=== PATIENT | female | born 1965 | race African-American/Black ===

== ENCOUNTER 2021-10-04 12:25 | Emergency (ER) | payer OTHER, MEDICAID ==
[~2021-10-04] VITALS: Ht 165.1 cm; Wt 86.2 kg
[2021-10-04 13:24] LABS: Urine Bacteria FEW /hpf (None Seen); Urine Blood Negative /uL (Negative); Urine Mucus FEW (None Seen); Urine Specific Gravity 1.025 (1.001-1.035); Urine WBC 2 /hpf (0 - 5)
[2021-10-04 13:26] LABS: Basophils # (auto) 0 10 ^3/uL (0-0.2); Eosinophils # (auto) 0.6 10 ^3/uL (0-0.8); Eosinophils % (auto) 6.5 % (0.0-7.0); Hematocrit 39.3 % (36.0-46.0); Hemoglobin 12.4 g/dL (12.2-16.2); Lymphocytes # (auto) 2.5 10 ^3/uL (0.4-5.4); Mean Corpuscular Hemoglobin 25.2 pg (28.0-32.0); Mean Corpuscular Hgb Conc. 31.6 g/dL (32.0-36.0); Mean Corpuscular Volume 79.8 fL (80.0-100.0); Monocytes # (auto) 0.4 10 ^3/uL (0-1.3); Monocytes % (auto) 3.7 % (0.0-12.0); Neutrophils # (auto) 6.4 10 ^3/uL (1.6-8.6); Neutrophils % (auto) 64.8 % (37.0-80.0); Nucleated Red Blood Cells % 0.1 %; Red Blood Cells 4.93 10^6/uL (4.0-5.20); Red Cell Distribution Width 15.2 % (11.8-14.3); White Blood Cell 9.8 10^3/uL (4.4-10.8)
[2021-10-04 13:34] LABS: Albumin 3.6 g/dL (3.4-5.0); Calcium 9.5 mg/dL (8.5-10.1); Potassium 4.1 mmol/L (3.5-5.1)
[2021-10-04 13:37] LABS: BUN/Creatinine Ratio 21.1; Bilirubin, Total 0.4 mg/dL (0.2-1.0); Total Protein 7.6 g/dL (6.4-8.2)
[2021-10-04 13:47] LABS: INR 1.02 (0.9-1.15); Partial Thromboplastin Time 28.6 sec (23.6-33.0)
[2021-10-04 14:56] VITALS: BP 136/82
[2021-10-04] MEDS ORDERED: SODIUM CHLORIDE 0.9% 1,000 ML IV ONE (16:00)
[2021-10-04] MEDS ORDERED: PANTOPRAZOLE 40 MG/10 ML VIAL INJ IV ONE (16:00)
[2021-10-04] MEDS ORDERED: PANT40TA2 PO (16:47)
== END 2021-10-04 16:57 | disposition home or self-care (01) ==
LOC: ER 12:25
DX: K62.5 Hemorrhage of anus and rectum (principal); K64.8 Other hemorrhoids; I10 Essential (primary) hypertension; E78.5 Hyperlipidemia, unspecified; Z86.010 Personal history of colon polyps; Z79.899 Other long term (current) drug therapy
CPT/HCPCS: 36415; 71045; 74176; 80053; 81001; 82270; 83605; 83690; 85025; 85610; 85730; 93005; 96361; 96374; 99285; C9113; J7030

== ENCOUNTER 2025-07-05 07:25 | Day surgery (SDC) | payer OTHER, MEDICAID ==
[2025-07-04 09:04] LABS: Hemoglobin 13.1 g/dL (12.2-16.2)
[2025-07-04 09:06] LABS: Hematocrit 40.9 % (36.0-46.0); Mean Corpuscular Hemoglobin 25.8 pg (28.0-32.0); Mean Corpuscular Volume 80.6 fL (80.0-100.0); Nucleated Red Blood Cells % 0.2 %
[2025-07-04 09:09] LABS: Urine Protein, UAD Negative (Negative)
[2025-07-04 09:21] LABS: INR 0.98 (0.9-1.15); Partial Thromboplastin Time 28.0 SEC (24.5-34.5); Prothrombin Time 10.4 sec (9.3-11.8)
[2025-07-04 09:25] LABS: Alanine Aminotransferase 20 U/L (7-40); Alkaline Phosphatase 105 U/L (46-116); Anion Gap 7 (5-15); BUN/Creatinine Ratio 16.7 (10.0-20.0); Blood Urea Nitrogen 13 mg/dL (9-23); Calcium 9.4 mg/dL (8.7-10.4); Carbon Dioxide 27 mmol/L (20-31); Glucose 90 mg/dL (74-106); Potassium 4.8 mmol/L (3.5-5.1); Sodium 142 mmol/L (136-145); Total Protein 7.3 g/dL (5.7-8.2)
[2025-07-04 09:26] LABS: Albumin 4.4 g/dL (3.2-4.8)
[2025-07-04 09:27] LABS: Bilirubin, Total 0.2 mg/dL (0.2-1.0); Chloride 108 mmol/L (98-107)
[~2025-07-05] VITALS: Ht 167.6 cm; Wt 89.8 kg
[~2025-07-05 07:25] MED LIST: HYDR25TA5 GT; LEVE500T40 PO; LISI20TA56 PO; PANT40TA2 PO; ROSU10TA16 PO
[2025-07-05] MEDS ORDERED: LIDOCAINE 2% (LOCAL ANESTH.) PF 5ml SDV ONE (08:03)
[2025-07-05] MEDS ORDERED: PROPOFOL 10 MG/ML 20 ML IV ONE (08:03)
--- NOTE | 2025-07-05 08:34 | DVHHP2 ---
GI H&P Pre-Op Assessment Date: 07/05/25 Chief complaint: Epigastric pain, nausea vomiting HPI: per clinic note Past medical history: per clinic note Past surgical history: per clinic note Family history: per clinic note Physical exam: General: NAD, AAOX3 HEENT: PERRL, no scleral icterus, normal hearing, gums without lesions or bleeding, oropharynx clear without erythema or exudate. Neck: Supple without enlargement of the thyroid, or lymphadenopathy. Chest: Normal size and shape, no tenderness, lung ontiveros clear to auscultation and percussion, nonlabored breathing. Heart: RRR, no murmur Abdomen: non-distended, no tenderness to palpation, +BS, no hepatosplenomegaly Extremities: no edema Neurological: CN II-XII intact, sensation intact in all extremities, 5+ strength in all extremities Skin: No rashes, No jaundice Assessment: - Epigastric pain, nausea vomiting Plan: - EGD - Risks (bleeding, infection, perforation, reaction to sedation medications and cardiopulmonary arrest) and benefit of the procedure were explained to patient. Patient agrees to undergo the procedure. MERA SHUKLA MD Jul 05, 2025 08:34
--- NOTE | 2025-07-05 08:36 | DVHOP2 ---
Operative Report DATE OF OPERATION: 07/05/25 PROCEDURE: Upper Endoscopy. PREOPERATIVE INDICATION: The patient is a 59 -year-old female undergoing endoscopy for epigastric pain, nausea and vomiting. POSTOPERATIVE DIAGNOSES: 1. Antral gastritis 2. 1 cm hiatal hernia PROCEDURE PERFORMED BY: Jefe Jose SCOPE: Olympus videoendoscope. ASA CLASS: 3 PREOPERATIVE MEDICATIONS: MAC with Colin COLON PROCEDURE IN DETAIL: After obtaining an informed consent, the patient was placed on her back. The patient was then sedated with the above medications. A bite block was placed between her teeth. The endoscope was then passed through the oropharynx, into the esophagus, and through the stomach and pylorus up to the second and third part of the duodenum. The duodenum was normal in appearance. There was antral gastritis. Antral biopsies were obtained using cold forceps. There was a 1 cm hiatal hernia. The GE junction was normal in appearance at 34 cm. The esophagus was normal in appearance. The endoscope was then withdrawn. The patient tolerated the procedure well without difficulty. COMPLICATIONS : None SPECIMENS: Antral biopsies DISPOSITION: D/C to home PLAN: 1. Await for biopsy result 2. Continue with Protonix. JEFE JOSE MD Jul 05, 2025 08:36
--- NOTE | 2025-07-05 08:36 | DVHDS2 ---
Physician Discharge Progress N Final Diagnosis: Antral gastritis Operations or Procedures: Operations or Procedures EGD with cold biopsies Condition on Discharge: Good Disposition: Home Discharge Instructions: Diet: Regular Activity: No Restrictions, As Tolerated Medications: Resume with previous home medications Follow Up Care: Discharge Statement: "Patient was advised to return to the ER or call 911 if any headaches, dizziness, shortness of breath, chest pain, abdominal pain, bleeding, fevers, or worsening of medical condition. Patient was counseled about treatment plan, medications, possible side effects, patientverbalized understanding. All questions were answered to the best of my ability. This discharge took greater then 30 minutes in planning, reviewing documen tation, counseling the patient, and discussing with other team members." MERA SHUKLA MD Jul 05, 2025 08:36
[2025-07-05 08:38] VITALS: TEMP 97.8
[2025-07-05 09:00] VITALS: BP 128/87; PULSE 59; RESP 22; O2SAT 97
== END 2025-07-05 09:10 | disposition home or self-care (01) ==
LOC: GI 07:25
PROVIDERS: ATTEND Internal Medicine Gastroenterology
DX: K29.50 Unspecified chronic gastritis without bleeding (principal); R10.13 Epigastric pain; K44.9 Diaphragmatic hernia without obstruction or gangrene; E66.9 Obesity, unspecified; J45.909 Unspecified asthma, uncomplicated; I10 Essential (primary) hypertension; E78.5 Hyperlipidemia, unspecified; I69.354 Hemiplegia and hemiparesis following cerebral infarction affecting left non-dominant side; R11.2 Nausea with vomiting, unspecified; Z68.32 Body mass index [BMI] 32.0-32.9, adult; Z79.899 Other long term (current) drug therapy; Z98.890 Other specified postprocedural states
CPT/HCPCS: 36415; 43239; 80053; 81001; 85025; 85610; 85730; 88305; 88313; 88342; J2003; J2704; J7030

== ENCOUNTER 2025-08-21 02:14 | Inpatient (IN) | payer MEDICARE, MEDICAID ==
[~2025-08-21] VITALS: Ht 167.6 cm; Wt 93.5 kg
[2025-08-21] MEDS: SODIUM CHLORIDE 0.9% 1,000 ML IV ONE (02:30)
[2025-08-21] MEDS ORDERED: MORPHINE SULFATE INJ 2 MG/ml SYRG IV ONE (02:30)
[2025-08-21] MEDS: ACETAMINOPHEN 500 MG TAB or CAP PO ONE (02:30)
--- NOTE | 2025-08-21 02:37 | ED.PDOC ---
HPI (NEURO) HPI Comments 59 year-old female presents to the ED via EMS with a chief complaint of R sided headache, neck pain, R upper extremity pain, and general weakness as of 0500 yesterday. Patient also presents with R sided facial droop, but no slurred speech or blurred vision. Patient has a Hx of CVA, with L sided weakness following last stroke. Patient reports taking Tylenol yesterday for pain. Patient is also taking Keppra and [place] medications as prescribed. There are otherwise no further complaints or modifying factors at this time. REVIEW OF SYSTEMS: General: No fever, no chills, or fatigue HEENT: No sore throat, no earache, no congestion, + neck pain. Cardiac: No chest pain. No palpitations. Lungs: No shortness of breath, no cough. GI: No nausea, no vomiting, no diarrhea, no constipation, no abdominal pain : No dysuria, frequency, or urgency. No hematuria. Musculoskeletal: + joint pain , no joint swelling, no extremity edema. Skin: No rash, no itching. Neuro: + headache, no dizziness, + weakness. + R facial droop (And as sated in HPI) PHYSICAL EXAM: General: Awake, alert and oriented. No acute distress. Skin: Skin in warm, dry and intact. Appropriate color for ethnicity. HEENT: The head is normocephalic and atraumatic. Conjunctivae are clear without exudates or hemorrhage. Sclera is non-icteric. Eyelids are normal in appearance without swelling or lesions. Oral mucosa is pink and moist Neck: The neck is supple with normal range of motion. No JVD. Cardiac: Heart rate and rhythm are normal. No murmurs, gallops, or rubs are auscultated. Respiratory: No signs of respiratory distress. Lung sounds are clear in all lobes bilaterally without rales, rhonchi, or wheezes. Abdominal: Abdomen is soft, non-tender without distention, guarding or rigidity. Bowel sounds are present and normoactive in all four quadrants. Extremities: +Pain in the R upper extremity, shoulder, and neck area. + bilateral lower extremity weakness. Lower extremities without edema. Neurological: The patient is awake, alert and oriented to person, place, and time with normal speech. Speech is clear. + R facial droop. Psychiatric: Appropriate mood and affect. Good judgement and insight. Chief Complaint: Right Sided Weakness Time Seen by MD: 02:31 Primary Care Provider: SHANT Lam Notes: Medications, Allergies Information Source: Patient Mode of Arrival: Wheelchair Severity: Moderate Timing: Days Duration: Since onset Associated Signs and Symptoms: Headache, Neck Pain, Weakness Past Medical History PAST MEDICAL HISTORY: CVA, High Lipids, HTN, Kidney Stones, Seizures Surgical History: Denies all surgeries LANDCARE OFFICER History: No Pertinent LANDCARE OFFICER History Family History Family History: Reviewed,noncontributory to illness Social History Smoker: Non-Smoker Alcohol: Denies ETOH Use Drugs: Denies Drug Use Lives In: Home EKG EKG : Pulse Rate (adult): 55 Cardiac Rhythm: NSR Hypertrophy: LAE Was a procedure done? Was a procedure done?: No Differential Diagnosis (SZ) CVA: CVA, Electrolyte Imbalance, Encephalopathy, Hypoglycemia Headache: Cluster, Migraine, Sinusitis X-Ray, Labs, Meds, VS Vital Signs Date Time Temp Pulse Resp B/P (MAP) Pulse Ox O2 Delivery O2 Flow Rate FiO2 08/21/25 05:10 70 16 137/80 08/21/25 02:37 55 08/21/25 02:32 55 08/21/25 02:16 98.0 62 14 144/99 100 98.0 Lab Test 08/21/25 02:45 Range/Units White Blood Count 11.3 H 4.4-10.8 10^3/uL Red Blood Count 5.10 4.0-5.20 10^6/uL Hemoglobin 12.8 12.2-16.2 g/dL Hematocrit 40.1 36.0-46.0 % Mean Corpuscular Volume 78.6 L 80.0-100.0 fL Mean Corpuscular Hemoglobin 25.1 L 28.0-32.0 pg Mean Corpuscular Hemoglobin Concent 32.0 32.0-36.0 g/dL Red Cell Distribution Width 15.3 H 11.8-14.3 % Platelet Count 235 140-450 10^3/uL Mean Platelet Volume 10.3 6.9-10.8 fL Neutrophils (%) (Auto) 53.5 37.0-80.0 % Lymphocytes (%) (Auto) 33.7 10.0-50.0 % Monocytes (%) (Auto) 8.6 0.0-12.0 % Eosinophils (%) (Auto) 2.6 0.0-7.0 % Basophils (%) (Auto) 1.6 0.0-2.0 % Neutrophils # (Auto) 6.0 1.6-8.6 10 ^3/uL Lymphocytes # (Auto) 3.8 0.4-5.4 10 ^3/uL Monocytes # (Auto) 1.0 0-1.3 10 ^3/uL Eosinophils # (Auto) 0.3 0-0.8 10 ^3/uL Basophils # (Auto) 0.2 0-0.2 10 ^3/uL Nucleated Red Blood Cells 0.2 % Prothrombin Time 10.3 9.3-11.8 sec Prothrombin Time INR 0.97 0.9-1.15 Activated Partial Thromboplast Time 21.4 L 24.5-34.5 SEC Sodium Level 138 136-145 mmol/L Potassium Level 4.4 3.5-5.1 mmol/L Chloride Level 109 H 98-107 mmol/L Carbon Dioxide Level 22 20-31 mmol/L Anion Gap 7 5-15 Blood Urea Nitrogen 7 L 9-23 mg/dL Creatinine 0.74 0.550-1.02 mg/dL Glomerular Filtration Rate Calc 94 >90 mL/min BUN/Creatinine Ratio 9.5 L 10.0-20.0 Serum Glucose 98 74-106 mg/dL Calcium Level 9.3 8.7-10.4 mg/dL Magnesium Level 2.1 1.6-2.6 mg/dL Total Bilirubin 0.3 0.2-1.0 mg/dL Aspartate Amino Transferase (AST) 29 13-40 U/L Alanine Aminotransferase (ALT) 24 7-40 U/L Alkaline Phosphatase 85 46-116 U/L Troponin I High Sensitivity 5 </=34 ng/L B-Type Natriuretic Peptide 20.27 0-100 pg/mL Total Protein 7.1 5.7-8.2 g/dL Albumin 4.1 3.2-4.8 g/dL Current Medications Medications (Trade) Dose Ordered Sig/Svetlana Route Start Time Stop Time Status Last Admin Acetaminophen (Tylenol Tablet Or Capsule) 1,000 mg ONCE ONCE PO 08/21/25 02:30 08/21/25 02:32 DC 08/21/25 02:30 Sodium Chloride 1,000 ml @ 1,000 mls/hr Q1H ONCE IV 08/21/25 02:30 08/21/25 03:29 DC 08/21/25 02:30 Hydromorphone HCl (Dilaudid Injection) 0.5 mg ONCE ONCE IV 08/21/25 04:15 08/21/25 04:16 DC 08/21/25 05:10 Ketorolac Tromethamine (Toradol Injection) 15 mg ONCE ONCE IV 08/21/25 04:15 08/21/25 04:16 DC 08/21/25 04:26 Time of 1ST Reevaluation: 03:24 Reevaluation 1ST: Unchanged Patient Education/Counseling: Diagnosis, Treatment Family Education/Counseling: Diagnosis, Treatment Departure 1 Departure Time of Disposition: 05:34 Impression: Primary Impression: Neck pain on right side Additional Impressions: Stroke-like symptoms Severe headache Disposition: ADMITTED INPATIENT Condition: Stable Critical Care Note Critical Care Time?: No Stability Stability form required: No Heart Score Heart Score: Heart Score Response (Comments) Value History Slightly Suspicious 0 EKG Normal 0 Age 45-64 1 Risk Factors 1 or 2 risk factors 1 Troponin N/A 0 Total 2 I personally scribed for RAYO PRATT MD ([email or web address]) on 08/21/25 at 02:37. Electronically submitted by Kimmy Martinez ([email or web address]). I personally scribed for RAYO PRATT MD ([email or web address]) on 08/21/25 at 02:38. Electronically submitted by Kimmy Martinez ([email or web address]). I personally scribed for RAYO PRATT MD ([email or web address]) on 08/21/25 at 03:08. Electronically submitted by Kimmy Martinez ([email or web address]). RAYO PRATT MD Aug 21, 2025 02:37
[2025-08-21] MEDS: IOHEXOL 350 MG/ML 100ML IJ ONE (02:40)
[2025-08-21 03:13] LABS: Hemoglobin 12.8 g/dL (12.2-16.2); Mean Corpuscular Hemoglobin 25.1 pg (28.0-32.0); Nucleated Red Blood Cells % 0.2 %
[2025-08-21 03:15] LABS: Hematocrit 40.1 % (36.0-46.0); Mean Corpuscular Volume 78.6 fL (80.0-100.0)
[2025-08-21 03:30] LABS: Alanine Aminotransferase 24 U/L (7-40); Albumin 4.1 g/dL (3.2-4.8); Alkaline Phosphatase 85 U/L (46-116); Anion Gap 7 (5-15); BUN/Creatinine Ratio 9.5 (10.0-20.0); Calcium 9.3 mg/dL (8.7-10.4); Carbon Dioxide 22 mmol/L (20-31); Glucose 98 mg/dL (74-106); Magnesium 2.1 mg/dL (1.6-2.6); Potassium 4.4 mmol/L (3.5-5.1); Sodium 138 mmol/L (136-145); Total Protein 7.1 g/dL (5.7-8.2)
[2025-08-21 03:31] LABS: Bilirubin, Total 0.3 mg/dL (0.2-1.0)
[2025-08-21 03:38] LABS: Blood Urea Nitrogen 7 mg/dL (9-23); Chloride 109 mmol/L (98-107)
[2025-08-21 03:43] LABS: INR 0.97 (0.9-1.15); Partial Thromboplastin Time 21.4 SEC (24.5-34.5); Prothrombin Time 10.3 sec (9.3-11.8)
--- NOTE | 2025-08-21 04:17 | DVH ---
CHEST RADIOGRAPH INDICATION: Stroke-like symptoms TECHNIQUE: Single frontal view of the chest was obtained COMPARISON: XY CHEST TWO VIEWS ROUTINE on DOS: 10/04/2021 FINDINGS: Lines and Tubes: None Lungs: No focal consolidation. Pleura: No effusion. No pneumothorax. Cardiomediastinal contours: Unremarkable Bones: No acute osseous abnormality. IMPRESSION: 1. No acute cardiopulmonary disease.
[2025-08-21] MEDS: KETOROLAC TROMETH 30 MG/ML 1ML VIAL IV ONE (04:26)
[2025-08-21] MEDS: HYDROmorphone HCL 2 MG/ML VL/or syr IV ONE (05:10)
--- NOTE | 2025-08-21 05:43 | DVH ---
PROCEDURE: CT ANGIO HEAD/Neck HISTORY: Severe right-sided headache, right facial droop, Comparison Study: None Exam Date:08/21/2025 03:16 AM TECHNIQUE: Noncontrast CT scan of the head was performed using 2.5 mm axial images. Coronal sagittal reformatted images are provided. CT angiography of the head and neck was performed with 100 cc Omnipaque 350 intravenous contrast. Coronal sagittal reformatted images were submitted. 3D image postprocessing was performed and images were used for interpretation and reporting. Radiation Dose : CT Dose: CTDI volume is 61.69 mGy. Dose-length product is 2.42 mGy*cm FINDINGS: CT scan of the head: No acute intracranial hemorrhage, mass effect or midline shift. No hydrocephalus. There is preservation of ovalle-white matter differentiation. Basal cisterns are patent. No sulcal effacement. Mastoid air cells and paranasal sinuses are patent. No acute calvarial abnormality. CTA head: The bilateral distal internal carotid arteries, middle and anterior cerebral arteries are patent. Posterior cerebral arteries are patent. The basilar artery is patent. No evidence of aneurysm or arteriovenous malformation. CTA neck: The visualized thoracic aortic arch and proximal great vessels are unremarkable. The left common, internal and external carotid arteries are within normal limits. The right common, internal and external carotid arteries are within normal limits. The cervical segments of the right and left vertebral arteries are within normal limits. The limited visualized lung apices are clear. The surrounding soft tissues and osseous structures are otherwise unremarkable. IMPRESSION: 1. No evidence of acute intracranial hemorrhage, mass effect or midline shift. 2. No evidence of hemodynamically significant intracranial stenosis, proximal occlusion or aneurysm. 3. No evidence of hemodynamically significant cervical stenosis or dissection. All CT scans at this medical facility are performed using dose modulation techniques as appropriate to a performed exam including the following: Automated exposure control was utilized; adjustment of the MA and/or KV according to patient size; and use of iterative reconstruction technique.
--- NOTE | 2025-08-21 06:03 | ECG ---
[facility] Test Date: 2025-08-21 Test Time: 02:32:20 Pat Name: JONNY BENITEZ Department: ED Room: 0222 Gender: F Marionette Performer: NAHED : 1965 Requested By: RAYO PRATT Order Number: [id number] Reading MD: Bobby Sanz Measurements Intervals [place] Rate: 55 P: 27 OK: 125 QRS: 48 QRSD: 100 T: 21 QT: 428 QTc: 410 Interpretive Statements Sinus rhythm Probable left atrial enlargement Borderline T abnormalities, anterior leads Electronically Signed On 08-24-2025 10:29:28 PST by Bobby Sanz Please click the below link to view image of tracing.
[2025-08-21] MEDS: IBUPROFEN 800 MG TAB PO ONE (08:18)
[2025-08-21] MEDS: BACLOFEN 10 MG TAB PO ONE (08:18)
[2025-08-21] MEDS ORDERED: ROSU40TA47 PO (08:24)
[2025-08-21] MEDS ORDERED: LEVE750T3 PO (08:24)
[2025-08-21] MEDS ORDERED: LISI10TA34 PO (08:24)
[2025-08-21] MEDS ORDERED: HYDR-4072 PO (08:24)
[2025-08-21] MEDS ORDERED: DOCUSATE SOD 100 MG CAP PO PRN (08:30)
[2025-08-21] MEDS ORDERED: ONDANSETRON HCL 4 MG/2 ML VIAL IV PRN (08:30)
[2025-08-21] MEDS ORDERED: ACETAMINOPHEN 325 MG TAB PO PRN (08:30)
--- NOTE | 2025-08-21 09:06 | DVHHP2 ---
History of Present Illness Reason for Visit: Right sided neck pain History of Present Illness Tanya Lantigua is a 59-year-old female with past medical history of CVA with left sided weakness, hypertension, hyperlipidemia, and seizures who came to the hospital due to right sided, head, neck, and shoulder pain. Patient states her pain began yesterday, 08/20/2025, about 0500. She tried taking Tylenol and using hot packs to relieve the pain. The pain continued to worsen throughout the day. This morning the pain became unbearable, she was not able to sleep. So she woke up her about 0300 and had him bring her to the hospital. CTA of head and neck was competed by ER and negative. Cardiovascular: HTN, hyperipidemia [employer]AIC FLOOR LAYER: Other (CVA with left sided weakness, seizures) Past Surgical History: (x 5) Smoke: No ALCOHOL: none Drugs: Marijuana Lives: with Family Domestic Violence: Neg Review of Systems Constitutional: No: Fever, Chills, Sweats, Weakness, Malaise, Other Eyes: No: Pain, Vision change, Conjunctivae inflammation, Eyelid inflammation, Other, Redness ENT: No: Ear pain, Ear discharge, Nose pain, Nose discharge, Nose congestion, Mouth pain, Mouth swelling, Throat pain, Throat swelling, Other Respiratory: No: Cough, Dry, Shortness of breath, SOB with excertion, Wheezing, Hemoptysis, Pleuritic Pain, Sputum, Wheezing, Other Cardiovascular: No: Chest Pain, Palpitations, Orthopnea, Paroxysmal Noc. Dyspnea, Edema, Lt Headedness, Other Gastrointestinal: No: Nausea, Vomiting, Abdominal Pain, Diarrhea, Constipation, Melena, Hematochezia, Other Genitourinary: No Dysuria, No Frequency, No Incontinence, No Hematuria, No Rete ntion, No Other Musculoskeletal: other (right sided headache), neck pain (right, painful to move head), shoulder pain (right), arm pain (right); No: back pain, hand pain, leg pain, foot pain Skin: No: Rash, Lesions, Jaundice, Bruising, Other Neurological: No: Weakness, Numbness, Incoordination, Change in speech, Confusion, Seizures, Other Allergies: Coded Allergies: NO KNOWN ALLERGIES (Unverified , 07/04/25) Medications Current Medications Medications Dose Ordered Sig/Svetlana Route Start Time Stop Time Status Last Admin Dose Admin Ondansetron HCl 4 mg Q4HP PRN IV 08/21/25 08:30 UNV Docusate Sodium 100 mg BIDPRN PRN PO 08/21/25 08:30 UNV Acetaminophen 650 mg Q6HP PRN PO 08/21/25 08:30 UNV Exam Vital Signs Vital Signs Date Time Temp Pulse Resp B/P (MAP) Pulse Ox O2 Delivery O2 Flow Rate FiO2 08/21/25 08:18 98.5 08/21/25 08:11 65 16 145/75 (98) 100 General Appearance: Alert, Oriented X3, Cooperative, moderate distress HEENT: Atraumatic, PERRLA, Mucous membr. moist/pink Respiratory: Clear to auscultation, Normal air movement Cardiovascular: Normal S1, Normal S2, No murmurs, Other (SB-SR) Abdominal: Normal bowel sounds, Soft, No tenderness, No hepatospenomegaly Extremities: No clubbing, No cyanosis, No edema, Normal pulses, No tenderness/swelling Skin: No rashes, No breakdown, No significant lesion Neuro: Normal gait, Normal speech, Strength at 5/5 X4 ext Psych/Mental Status: Mental status NL, Mood NL Labs/Xrays Labs Test 08/21/25 02:45 Range/Units White Blood Count 11.3 H 4.4-10.8 10^3/uL Red Blood Count 5.10 4.0-5.20 10^6/uL Hemoglobin 12.8 12.2-16.2 g/dL Hematocrit 40.1 36.0-46.0 % Mean Corpuscular Volume 78.6 L 80.0-100.0 fL Mean Corpuscular Hemoglobin 25.1 L 28.0-32.0 pg Mean Corpuscular Hemoglobin Concent 32.0 32.0-36.0 g/dL Red Cell Distribution Width 15.3 H 11.8-14.3 % Platelet Count 235 140-450 10^3/uL Mean Platelet Volume 10.3 6.9-10.8 fL Neutrophils (%) (Auto) 53.5 37.0-80.0 % Lymphocytes (%) (Auto) 33.7 10.0-50.0 % Monocytes (%) (Auto) 8.6 0.0-12.0 % Eosinophils (%) (Auto) 2.6 0.0-7.0 % Basophils (%) (Auto) 1.6 0.0-2.0 % Neutrophils # (Auto) 6.0 1.6-8.6 10 ^3/uL Lymphocytes # (Auto) 3.8 0.4-5.4 10 ^3/uL Monocytes # (Auto) 1.0 0-1.3 10 ^3/uL Eosinophils # (Auto) 0.3 0-0.8 10 ^3/uL Basophils # (Auto) 0.2 0-0.2 10 ^3/uL Nucleated Red Blood Cells 0.2 % Prothrombin Time 10.3 9.3-11.8 sec Prothrombin Time INR 0.97 0.9-1.15 Activated Partial Thromboplast Time 21.4 L 24.5-34.5 SEC Sodium Level 138 136-145 mmol/L Potassium Level 4.4 3.5-5.1 mmol/L Chloride Level 109 H 98-107 mmol/L Carbon Dioxide Level 22 20-31 mmol/L Anion Gap 7 5-15 Blood Urea Nitrogen 7 L 9-23 mg/dL Creatinine 0.74 0.550-1.02 mg/dL Glomerular Filtration Rate Calc 94 >90 mL/min BUN/Creatinine Ratio 9.5 L 10.0-20.0 Serum Glucose 98 74-106 mg/dL Calcium Level 9.3 8.7-10.4 mg/dL Magnesium Level 2.1 1.6-2.6 mg/dL Total Bilirubin 0.3 0.2-1.0 mg/dL Aspartate Amino Transferase (AST) 29 13-40 U/L Alanine Aminotransferase (ALT) 24 7-40 U/L Alkaline Phosphatase 85 46-116 U/L Troponin I High Sensitivity 5 </=34 ng/L B-Type Natriuretic Peptide 20.27 0-100 pg/mL Total Protein 7.1 5.7-8.2 g/dL Albumin 4.1 3.2-4.8 g/dL CHEST RADIOGRAPH FINDINGS: Lines and Tubes: None Lungs: No focal consolidation. Pleura: No effusion. No pneumothorax. Cardiomediastinal contours: Unremarkable Bones: No acute osseous abnormality. IMPRESSION: 1. No acute cardiopulmonary disease. PROCEDURE: CT ANGIO HEAD/Neck FINDINGS: CT scan of the head: No acute intracranial hemorrhage, mass effect or midline shift. No h ydrocephalus. There is preservation of ovalle-white matter differentiation. Basal cisterns are patent. No sulcal effacement. Mastoid air cells and paranasal sinuses are patent. No acute calvarial abnormality. CTA head: The bilateral distal internal carotid arteries, middle and anterior cerebral arteries are patent. Posterior cerebral arteries are patent. The basilar artery is patent. No evidence of aneurysm or arteriovenous malformation. CTA neck: The visualized thoracic aortic arch and proximal great vessels are unremarkable. The left common, internal and external carotid arteries are within normal limits. The right common, internal and external carotid arteries are within normal limits. The cervical segments of the right and left vertebral arteries are within normal limits. The limited visualized lung apices are clear. The surrounding soft tissues and osseous structures are otherwise unremarkable. IMPRESSION: 1. No evidence of acute intracranial hemorrhage, mass effect or midline shift. 2. No evidence of hemodynamically significant intracranial stenosis, proximal occlusion or aneurysm. 3. No evidence of hemodynamically significant cervical stenosis or dissection. SEPSIS Sepsis Screen Date sepsis recognized/suspect: Aug 21, 2025 Time Sepsis recognized/suspect: 218 Recent Procedure: Yes (EGD) On Antibiotic Therapy: No Respiratory Rate >20: No Heart Rate >90: No Temp<36 C (96.8 F) or >38.3 C: No SBP <90 or MAP <65 mmHG: No New Acute Mental Status Change: No Is the patient on CPAP, BIPAP,: No Physician Orders Stroke Assessment (08/21/25 02:29) Vital Signs .PER UNIT PROTOCOL (08/21/25 02:29) Director Personal (08/21/25 02:29) Accurate Weight In Kg (08/21/25 02:29) Accucheck (08/21/25 02:29) Chest Xray 1 View (08/21/25 02:29) 2 Large Bore Ivs (20mg Or Larg (08/21/25 02:29) Nursing Dysphagia Screen (08/21/25 02:29) Neuro Checks Per Unit Protocol (08/21/25 02:29) Angio Head/Neck (08/21/25 02:29) Admit (08/21/25 08:16) Code Status (08/21/25 08:16) 2 Gm Sodium Diet (08/21/25 Breakfast) Ondansetron Hcl (Zofran) (08/21/25 08:30) Docusate Sodium Capsule (Colace Capsule) (08/21/25 08:30) Complete Blood Count (08/22/25 04:00) Comprehensive Metabolic Panel (08/22/25 04:00) Condition: Serious (08/21/25 08:16) Acetaminophen Tablet (Tylenol Tablet) (08/21/25 08:30) Hot Pack (08/21/25 ) Hydrocodone-Acet 10/325mg Tab ([place] 10/ (08/21/25 08:30) (Nf) Levetiracetam (08/21/25 10:00) (Nf) Lisinopril (08/21/25 10:00) (Nf) Rosuvastatin Calcium (08/21/25 22:00) Vital Signs Date Time Temp Pulse Resp B/P (MAP) Pulse Ox O2 Delivery O2 Flow Rate FiO2 08/21/25 08:18 98.5 08/21/25 08:11 98.5 65 16 145/75 (98) 100 98.5 08/21/25 05:41 98.8 70 16 141/100 (114) 99 98.8 08/21/25 05:10 70 16 137/80 08/21/25 02:37 55 08/21/25 02:32 55 08/21/25 02:16 98.0 62 14 144/99 100 98.0 Laboratory Tests Test 08/21/25 02:45 White Blood Count 11.3 10^3/uL (4.4-10.8) H Medications Medications Dose Ordered Sig/Svetlana Route Start Time Stop Time Status Last Admin Dose Admin Acetaminophen 1,000 mg ONCE ONCE PO 08/21/25 02:30 08/21/25 02:32 DC 08/21/25 02:30 1,000 MG Baclofen 10 mg ONCE ONCE PO 08/21/25 08:00 08/21/25 08:07 DC 08/21/25 08:18 10 MG Hydromorphone HCl 0.5 mg ONCE ONCE IV 08/21/25 04:15 08/21/25 04:16 DC 08/21/25 05:10 0.5 MG Ibuprofen 800 mg ONCE ONCE PO 08/21/25 08:00 08/21/25 08:07 DC 08/21/25 08:18 800 MG Ketorolac Tromethamine 15 mg ONCE ONCE IV 08/21/25 04:15 08/21/25 04:16 DC 08/21/25 04:26 15 MG Sodium Chloride 1,000 ml @ 1,000 mls/hr Q1H ONCE IV 08/21/25 02:30 08/21/25 03:29 DC 08/21/25 02:30 1,000 MLS/HR Assessment/Plan Assessment/Plan Assessment: Neck pain on right side, CVA, Hypertension, Hyperlipidemia, Seizures, Plan: Admit to Med-Surg, Pain management, Muscle relaxers, Hot packs, Motrin, Home medications reconciled, Plan discussed with: Patient My Orders Orders - RICKI ESPOSITO Procedure Category Date Status Time Admit ADMIT 08/21/25 Transmitted 08:16 Code Status CODE 08/21/25 Transmitted 08:16 2 Gm Sodium Diet DIET 08/21/25 Transmitted Breakfast Ondansetron Hcl PHA 08/21/25 Logged (Zofran) 08:30 Docusate Sodium PHA 08/21/25 Logged Capsule (Colace 08:30 Complete Blood Count LAB 08/22/25 Verified 04:00 Comprehensive LAB 08/22/25 Verified Metabolic Panel 04:00 Condition: Serious TAMIKA 08/21/25 In Process 08:16 Acetaminophen Tablet PHA 08/21/25 Logged (Tylenol Tablet) 08:30 Hot Pack ED NURSING 08/21/25 Transmitted Hydrocodone-Acet PHA 08/21/25 Verified 10/325mg Tab ([place] 08:30 (Nf) Levetiracetam PHA 08/21/25 Verified 10:00 (Nf) Lisinopril PHA 08/21/25 Verified 10:00 (Nf) Rosuvastatin PHA 08/21/25 Verified Calcium 22:00 Date of Service: Aug 21, 2025 Billing Provider: RICKI ESPOSITO Common Visit Codes: [id number] INP/OBS CARE (MOD) RICKI ESPOSITO Aug 21, 2025 09:06
[2025-08-21] MEDS: levETIRAcetam 500 MG TAB PO SCH ×3 (10:00→21:58)
[2025-08-21] MEDS: LISINOPRIL 20 MG TAB PO SCH (10:31)
[2025-08-21 11:10] VITALS: RESP 16; O2SAT 99
[2025-08-21] MEDS: HYDROcodone-ACET 10/325MG TAB PO PRN (13:46)
--- NOTE | 2025-08-21 13:48 | DVH ---
CLINICAL HISTORY: weakness TECHNIQUE: Routine multiplanar imaging of the brain was performed without gadolinium contrast. COMPARISON: CT ANGIO HEAD/NECK on DOS: 08/21/25, MRI BRAIN WO on DOS: 12/07/24 FINDINGS: There is no abnormal restricted diffusion to suggest acute infarction. There are no significant chronic small vessel ischemic foci. There is no evidence for acute ischemic changes, mass, mass effect, or extra- axial fluid collection. There is no hydrocephalus or midline shift. The cerebral sulci and subarachnoid cisterns are not effaced. The imaged paranasal sinuses are clear. The globes are intact. The midline structures, including the corpus callosum, are unremarkable. The intracranial flow voids are maintained. IMPRESSION: No significant MRI abnormality of the brain.
--- NOTE | 2025-08-21 14:02 | DVHPN2 ---
Reviewed: H&P Changes from previous H/P or p: No Changes General: Per HPI Eyes: No Pain, No Vision change, No Conjunctivae inflammation, No Eyelid inflammation, No Other, No Redness ENT: No Ear pain, No Ear discharge, No Nose pain, No Nose discharge, No Nose congestion, No Mouth pain, No Mouth swelling, No Throat pain, No Throat swelling, No Other Cardiovascular: No Chest Pain, No Palpitations, No Orthopnea, No Paroxysmal Noc. Dyspnea, No Edema, No Lt Headedness, No Other Respiratory: No Cough, No Dry, No Shortness of breath, No SOB with excertion, No Wheezing, No Hemoptysis, No Pleuritic Pain, No Sputum, No Other Gastrointestinal: No Nausea, No Vomiting, No Abdominal Pain, No Diarrhea, No Constipation, No Melena, No Hematochezia, No Other Genitourinary: No Dysuria, No Frequency, No Incontinence, No Hematuria, No Retention, No Other Musculoskeletal: other (right sided headache), neck pain (right, painful to move head), shoulder pain (right), arm pain (right); No back pain, No hand pain, No leg pain, No foot pain Skin: No Rash, No Lesions, No Jaundice, No Bruising, No Other Objective Vitals Vital Signs Date Time Temp Pulse Resp B/P (MAP) Pulse Ox O2 Delivery O2 Flow Rate FiO2 08/21/25 11:35 98.5 59 16 138/83 (101) 100 98.5 08/21/25 11:10 Room Air* 0 21 Exam GEN: Healthy appearing, well-developed, NAD. HEENT: NC/AT; MMM. CV: RRR, no m/r/g. LUNGS: CTAB, no w/r/c. ABD: Soft, NT/ND, NBS, no masses or organomegaly. EXT: skin Warm, well perfused. no rashes. No clubbing, cyanosis, or edema. NEURO: Ambulating with no limitations. No focal deficits. Medications Current Medications Medications Dose Ordered Sig/Svetlana Route Start Time Stop Time Status Last Admin Dose Admin Ondansetron HCl 4 mg Q4HP PRN IV 08/21/25 08:30 Docusate Sodium 100 mg BIDPRN PRN PO 08/21/25 08:30 Acetaminophen 650 mg Q6HP PRN PO 08/21/25 08:30 Acetaminophen/ Hydrocodone Bitart 1 tab TIDP PRN PO 08/21/25 08:30 08/21/25 13:46 1 TAB Levetiracetam 1,500 mg BID PO 08/21/25 10:00 Lisinopril 10 mg DAILY PO 08/21/25 10:00 08/21/25 10:31 10 MG Patient Own Medication 1 tab HS PO 08/21/25 22:00 UNV Atorvastatin Calcium 80 mg HS PO 08/21/25 22:00 Levetiracetam 1,000 mg BID PO 08/21/25 22:00 08/21/25 10:30 1,000 MG Laboratory Results Laboratory Tests 08/21/25 02:45 Chemistry Test 08/21/25 02:45 Albumin 4.1 g/dL (3.2-4.8) Calcium Level 9.3 mg/dL (8.7-10.4) Magnesium Level 2.1 mg/dL (1.6-2.6) Total Protein 7.1 g/dL (5.7-8.2) Coagulation Test 08/21/25 02:45 Prothrombin Time 10.3 sec (9.3-11.8) Prothrombin Time INR 0.97 (0.9-1.15) Activated Partial Thromboplast Time 21.4 SEC (24.5-34.5) L Cardiac Markers Test 08/21/25 02:45 B-Type Natriuretic Peptide 20.27 pg/mL (0-100) LFT Test 08/21/25 02:45 Alanine Aminotransferase (ALT) 24 U/L (7-40) Alkaline Phosphatase 85 U/L (46-116) Aspartate Amino Transferase (AST) 29 U/L (13-40) Total Bilirubin 0.3 mg/dL (0.2-1.0) Labs and/or images reviewed: Labs reviewed by me, Image(s) reviewed by me Assessment/Plan Assessment/Plan Tanya Lantigua is a 59-year-old female with past medical history of CVA with left sided weakness, hypertension, hyperlipidemia, and seizures who came to the hospital due to right sided, head, neck, and shoulder pain. Patient states her pain began yesterday, 08/20/2025, about 0500. She tried taking Tylenol and using hot packs to relieve the pain. The pain continued to worsen throughout the day. This morning the pain became unbearable, she was not able to sleep. So she woke up her about 0300 and had him bring her to the hospital. CTA of head and neck was competed by ER and negative. diagnosis: status migrainus, ruled out stroke cervical neck musckuloskeletal spasm possible Neck pain on right side, Hypertension, Hyperlipidemia, Seizures, plan: We will try migraine cocktail fluid, Mag sulfate, Compazine, Solu-Medrol 20 Also try muscle relaxants -continue home meds Q.4 neuro checks Med surge Full code Plan discussed with: Patient My Orders Orders - SAWYER NEWSOME MD Procedure Category Date Status Time Sodium Chloride 0.9% PHA 08/21/25 Logged 14:00 Methylprednisolone PHA 08/21/25 Logged Sod Succ (Solu Medrol 14:00 Magnesium Sulfate PHA 08/21/25 Logged 1gm/100ml 14:00 Prochlorperazine Inj PHA 08/21/25 Logged (Compazine Inj) 14:00 Date of Service: Aug 21, 2025 Billing Provider: SAWYER NEWSOME MD Common Visit Codes: [id number] INP/OBS CARE(HIGH) SAWYER NEWSOME MD Aug 21, 2025 14:02
[2025-08-21 14:59] VITALS: PULSE 60; RESP 18; O2SAT 100
[2025-08-21 17:00] VITALS: BP 99/59; PULSE 78; RESP 20; TEMP 97.9; O2SAT 98
[2025-08-21] MEDS: methylPREDNISolone SOD SUCC 40 MG/ML VL IV ONE (17:54)
[2025-08-21] MEDS: BACLOFEN 10 MG TAB PO SCH (17:54)
[2025-08-21] MEDS: MAGNESIUM SULFATE 1GM/100ML 100 ML IV ONE (17:54)
[2025-08-21] MEDS: PROCHLORPERAZINE EDISYLATE 5 MG/ML 2ML VIAL IV ONE (17:54)
[2025-08-21] MEDS: SODIUM CHLORIDE 0.9% 250 ML IV ONE (17:55)
[2025-08-21] MEDS ORDERED: LORazepam 2MG/ML-1ML VIAL IV PRN (18:45)
[2025-08-21 20:00] VITALS: PULSE 64; RESP 16; O2SAT 98
[2025-08-21] MEDS: ATORVASTATIN 20 MG TAB PO SCH (21:58)
[2025-08-21 23:10] VITALS: BP 122/83; PULSE 60; RESP 18; TEMP 97.7; O2SAT 100
[2025-08-22 01:00] VITALS: BP 117/79; PULSE 63; RESP 17; TEMP 97.8; O2SAT 99
[2025-08-22 04:40] LABS: Hemoglobin 13.3 g/dL (12.2-16.2); Nucleated Red Blood Cells % 0.1 %
[2025-08-22 04:42] LABS: Hematocrit 41.5 % (36.0-46.0); Mean Corpuscular Hemoglobin 25.4 pg (28.0-32.0); Mean Corpuscular Volume 79.4 fL (80.0-100.0)
[2025-08-22 04:49] LABS: Alanine Aminotransferase 18 U/L (7-40); Albumin 4.1 g/dL (3.2-4.8); Alkaline Phosphatase 86 U/L (46-116); Anion Gap 7 (5-15); BUN/Creatinine Ratio 14.0 (10.0-20.0); Calcium 9.5 mg/dL (8.7-10.4); Carbon Dioxide 22 mmol/L (20-31); Potassium 4.2 mmol/L (3.5-5.1); Sodium 139 mmol/L (136-145); Total Protein 7.2 g/dL (5.7-8.2)
[2025-08-22 04:50] LABS: Bilirubin, Total 0.4 mg/dL (0.2-1.0)
[2025-08-22 04:51] LABS: Blood Urea Nitrogen 8 mg/dL (9-23); Chloride 110 mmol/L (98-107); Glucose 135 mg/dL (74-106)
[2025-08-22 05:00] VITALS: BP 138/66; PULSE 54; RESP 17; TEMP 97.8; O2SAT 100
[2025-08-22 08:00] VITALS: PULSE 70; RESP 16; O2SAT 98
[2025-08-22 09:00] VITALS: BP 132/71; PULSE 50; RESP 18; TEMP 98.1; O2SAT 98
--- NOTE | 2025-08-22 10:19 | DVHPN2 ---
Reviewed: H&P Changes from previous H/P or p: No Changes General: Per HPI Eyes: No Pain, No Vision change, No Conjunctivae inflammation, No Eyelid inflammation, No Other, No Redness ENT: No Ear pain, No Ear discharge, No Nose pain, No Nose discharge, No Nose congestion, No Mouth pain, No Mouth swelling, No Throat pain, No Throat swelling, No Other Cardiovascular: No Chest Pain, No Palpitations, No Orthopnea, No Paroxysmal Noc. Dyspnea, No Edema, No Lt Headedness, No Other Respiratory: No Cough, No Dry, No Shortness of breath, No SOB with excertion, No Wheezing, No Hemoptysis, No Pleuritic Pain, No Sputum, No Other Gastrointestinal: No Nausea, No Vomiting, No Abdominal Pain, No Diarrhea, No Constipation, No Melena, No Hematochezia, No Other Genitourinary: No Dysuria, No Frequency, No Incontinence, No Hematuria, No Retention, No Other Musculoskeletal: other (right sided headache), neck pain (right, painful to move head), shoulder pain (right), arm pain (right); No back pain, No hand pain, No leg pain, No foot pain Skin: No Rash, No Lesions, No Jaundice, No Bruising, No Other Objective Vitals Vital Signs Date Time Temp Pulse Resp B/P (MAP) Pulse Ox O2 Delivery O2 Flow Rate FiO2 08/22/25 09:00 98.1 50 18 132/71 (91) 98 98.1 08/21/25 20:00 Room Air* 0 21 Intake/Output Intake and Output 08/22/25 07:00 Intake Total 800 ml Balance 800 ml Intake Oral 800 ml # Voids 2 Exam GEN: Healthy appearing, well-developed, NAD. HEENT: NC/AT; MMM. CV: RRR, no m/r/g. LUNGS: CTAB, no w/r/c. ABD: Soft, NT/ND, NBS, no masses or organomegaly. EXT: skin Warm, well perfused. no rashes. No clubbing, cyanosis, or edema. NEURO: Ambulating with no limitations. No focal deficits. Medications Current Medications Medications Dose Ordered Sig/Svetlana Route Start Time Stop Time Status Last Admin Dose Admin Ondansetron HCl 4 mg Q4HP PRN IV 08/21/25 08:30 Docusate Sodium 100 mg BIDPRN PRN PO 08/21/25 08:30 Acetaminophen 650 mg Q6HP PRN PO 08/21/25 08:30 Acetaminophen/ Hydrocodone Bitart 1 tab TIDP PRN PO 08/21/25 08:30 08/22/25 04:22 1 TAB Lisinopril 10 mg DAILY PO 08/21/25 10:00 08/21/25 10:31 10 MG Patient Own Medication 1 tab HS PO 08/21/25 22:00 UNV Atorvastatin Calcium 80 mg HS PO 08/21/25 22:00 08/21/25 21:58 80 MG Baclofen 10 mg BID PO 08/21/25 14:15 08/22/25 09:39 10 MG Lorazepam 0.5 mg Q8HP PRN IV 08/21/25 18:45 Levetiracetam 1,000 mg BID PO 08/21/25 22:00 08/22/25 09:38 1,000 MG Laboratory Results Laboratory Tests 08/22/25 04:07 Chemistry Test 08/22/25 04:07 Albumin 4.1 g/dL (3.2-4.8) Calcium Level 9.5 mg/dL (8.7-10.4) Total Protein 7.2 g/dL (5.7-8.2) LFT Test 08/22/25 04:07 Alanine Aminotransferase (ALT) 18 U/L (7-40) Alkaline Phosphatase 86 U/L (46-116) Aspartate Amino Transferase (AST) 18 U/L (13-40) Total Bilirubin 0.4 mg/dL (0.2-1.0) Labs and/or images reviewed: Labs reviewed by me, Image(s) reviewed by me Assessment/Plan Assessment/Plan Tanya Lantigua is a 59-year-old female with past medical history of CVA with left sided weakness, hypertension, hyperlipidemia, and seizures who came to the hospital due to right sided, head, neck, and shoulder pain. Patient states her pain began yesterday, 08/20/2025, about 0500. She tried taking Tylenol and using hot packs to relieve the pain. The pain continued to worsen throughout the day. This morning the pain became unbearable, she was not able to sleep. So she woke up her about 0300 and had him bring her to the hospital. CTA of head and neck was competed by ER and negative. 08/22: Patient is feeling much better, this was definitely status migrainous flare-up, given cocktail yesterday feels much improved tolerating p.o. able to talk now. MRI brain negative for stroke. We will plan for discharge today she we will need continue her weekly injections, for abortive we will try Compazine 5 mg p.o. t.i.d. prn, can add Tylenol to it. Backup plan for Excedrin etc. if needed but if finding take more than 3 days' use with Protonix. Patient has in symptoms of urinary bladder pain, history of recurrent UTI, we will treat elective empirically with nitrofurantoin 100 mg b.i.d. 5 days. Nurse to get postvoid residual bladder scan. diagnosis: status migrainus, ruled out stroke cervical neck musckuloskeletal spasm possible Neck pain on right side, Hypertension, Hyperlipidemia, Seizures, plan: We will try migraine cocktail fluid, Mag sulfate, Compazine, Solu-Medrol 20 Also try muscle relaxants -continue home meds Q.4 neuro checks Med surge Full code Plan discussed with: Patient My Orders Orders - SAWYER NEWSOME MD Procedure Category Date Status Time Baclofen Tablet PHA 08/21/25 In Process (Liorisal Tablet) 14:15 Date of Service: Aug 22, 2025 Billing Provider: SAWYER NEWSOME MD Common Visit Codes: [id number] INP/OBS CARE(HIGH) SAWYER NEWSOME MD Aug 22, 2025 10:19
[2025-08-22 13:00] VITALS: BP 119/73; PULSE 65; RESP 18; TEMP 97.7; O2SAT 97
[2025-08-22] MEDS ORDERED: PROC10TA6 PO (15:26)
[2025-08-22] MEDS ORDERED: NITR-52 PO (15:26)
[2025-08-22 16:10] LABS: Urine Protein, UAD TRACE (Negative)
--- NOTE | 2025-08-28 09:40 | DVHDS2 ---
Discharge Summary Date of Admission Aug 21, 2025 at 08:16 Date of Discharge: Aug 22, 2025 Labs/Diagnostic Data: Laboratory Results Test 08/22/25 15:45 08/22/25 04:07 08/21/25 11:13 08/21/25 02:45 Urine Color Yellow (Yellow) Urine Clarity Clear (Clear) Urine pH 6.0 (5.0-9.0) Urine Specific [place] 1.032 (1.001-1.035) Urine Protein Trace (Negative) Urine Ketones Trace (Negative) Urine Blood Negative /uL (Negative) Urine Nitrite Negative (Negative) Urine Bilirubin Negative (Negative) Urine Urobilinogen Normal mg/dL (Negative) Urine Leukocyte Esterase Negative /uL (Negative) Urine RBC 1 /hpf (0 - 4) Urine Microscopic WBC 1 /HPF (0-5) Urine Squamous Epithelial Cells Few /hpf (<5) Urine Bacteria Few /hpf (None Seen) Urine Mucus Few (None Seen) Urine Glucose Normal mg/dL (Normal) White Blood Count 7.8 10^3/uL (4.4-10.8) Red Blood Count 5.23 10^6/uL (4.0-5.20) Hemoglobin 13.3 g/dL (12.2-16.2) Hematocrit 41.5 % (36.0-46.0) Mean Corpuscular Volume 79.4 fL (80.0-100.0) Mean Corpuscular Hemoglobin 25.4 pg (28.0-32.0) Mean Corpuscular Hemoglobin Concent 32.0 g/dL (32.0-36.0) Red Cell Distribution Width 15.3 % (11.8-14.3) Platelet Count 218 10^3/uL (140-450) Mean Platelet Volume 10.0 fL (6.9-10.8) Neutrophils (%) (Auto) 77.9 % (37.0-80.0) Lymphocytes (%) (Auto) 19.3 % (10.0-50.0) Monocytes (%) (Auto) 1.8 % (0.0-12.0) Eosinophils (%) (Auto) 0.1 % (0.0-7.0) Basophils (%) (Auto) 0.9 % (0.0-2.0) Neutrophils # (Auto) 6.1 10 ^3/uL (1.6-8.6) Lymphocytes # (Auto) 1.5 10 ^3/uL (0.4-5.4) Monocytes # (Auto) 0.1 10 ^3/uL (0-1.3) Eosinophils # (Auto) 0 10 ^3/uL (0-0.8) Basophils # (Auto) 0.1 10 ^3/uL (0-0.2) Nucleated Red Blood Cells 0.1 % Sodium Level 139 mmol/L (136-145) Potassium Level 4.2 mmol/L (3.5-5.1) Chloride Level 110 mmol/L (98-107) Carbon Dioxide Level 22 mmol/L (20-31) Anion Gap 7 (5-15) Blood Urea Nitrogen 8 mg/dL (9-23) Creatinine 0.57 mg/dL (0.550-1.02) Glomerular Filtration Rate Calc 105 mL/min (>90) BUN/Creatinine Ratio 14.0 (10.0-20.0) Serum Glucose 135 mg/dL (74-106) Calcium Level 9.5 mg/dL (8.7-10.4) Magnesium Lvl (Mg Sulfate Therapy) 2.20 mg/dL (4.0-7.1) Total Bilirubin 0.4 mg/dL (0.2-1.0) Aspartate Amino Transferase (AST) 18 U/L (13-40) Alanine Aminotransferase (ALT) 18 U/L (7-40) Alkaline Phosphatase 86 U/L (46-116) Total Protein 7.2 g/dL (5.7-8.2) Albumin 4.1 g/dL (3.2-4.8) POC Glucose 124 mg/dl (70-106) Prothrombin Time 10.3 sec (9.3-11.8) Prothrombin Time INR 0.97 (0.9-1.15) Activated Partial Thromboplast Time 21.4 SEC (24.5-34.5) Magnesium Level 2.1 mg/dL (1.6-2.6) Troponin I High Sensitivity 5 ng/L (</=34) B-Type Natriuretic Peptide 20.27 pg/mL (0-100) Other Laboratory Tests 08/22/25 04:07 Brief Hx & Hospital Course: Tanya Lantigua is a 59-year-old female with past medical history of CVA with left sided weakness, hypertension, hyperlipidemia, and seizures who came to the hospital due to right sided, head, neck, and shoulder pain. Patient states her pain began yesterday, 08/20/2025, about 0500. She tried taking Tylenol and using hot packs to relieve the pain. The pain continued to worsen throughout the day. This morning the pain became unbearable, she was not able to sleep. So she woke up her about 0300 and had him bring her to the hospital. CTA of head and neck was competed by ER and negative. 08/22: Patient is feeling much better, this was definitely status migrainous flare-up, given cocktail yesterday feels much improved tolerating p.o. able to talk now. MRI brain negative for stroke. We will plan for discharge today she we will need continue her weekly injections, for abortive we will try Compazine 5 mg p.o. t.i.d. prn, can add Tylenol to it. Backup plan for Excedrin etc. if needed but if finding take more than 3 days' use with Protonix. Patient has in symptoms of urinary bladder pain, history of recurrent UTI, we will treat elective empirically with nitrofurantoin 100 mg b.i.d. 5 days. Nurse to get postvoid residual bladder scan. diagnosis: status migrainus, ruled out stroke cervical neck musckuloskeletal spasm possible Neck pain on right side, Hypertension, Hyperlipidemia, Seizures, Plan: Patient left AMA, thus assuming all responsibility and any complications that may arise from having not getting recommended and needed adequate medical care/attention. Complications can include including and/or coma, and any other serious fatal comorbidities. Condition at Discharge: Undetermined Final Diagnosis/Problems List status migrainus, ruled out stroke cervical neck musckuloskeletal spasm possible Neck pain on right side, Hypertension, Hyperlipidemia, Seizures, Discharge Disposition: AMA Discharge Instruct/Medications Scheduled Levetiracetam (Levetiracetam), 2 TAB PO BID, (Reported) Lisinopril (Lisinopril), 1 TAB PO DAILY, (Reported) Nitrofurantoin (Nitrofurantoin), 1 CAP PO BID Pantoprazole Sodium Sesquihydr (Protonix), 40 MG PO DAILY Rosuvastatin Calcium (Rosuvastatin Calcium), 1 TAB PO HS, (Reported) Scheduled PRN Hydrocodone-Acetaminophen (Hydrocodone/Acetaminophen 10-325 mg), 1 TAB PO TIDP PRN, (Reported) Prochlorperazine Maleate (Compazine), 1 TAB PO Q6HR PRN Miscellaneous Medications Hctz (Hydrochlorothiazide), Unknown Dose GT, (Reported) Discontinued Medications Levetiracetam (Keppra), Unknown Dose PO, (Reported) Lisinopril (Lisinopril), Unknown Dose PO, (Reported) Rosuvastatin Calcium (Crestor), Unknown Dose PO DAILY, (Reported) Discharge Statement: "Patient was advised to return to the ER or call 911 if any headaches, dizziness, shortness of breath, chest pain, abdominal pain, bleeding, fevers, or worsening of medical condition. Patient was counseled about treatment plan, medications, possible side effects, patientverbalized understanding. All questions were answered to the best of my ability. This discharge took greater then 30 minutes in planning, reviewing documentation, counseling the patient, and discussing with other team members." ASSESSMENT ASSESSMENT Assessment Date of Service: Aug 22, 2025 Billing Provider: SAWYER NEWSOME MD Common Visit Codes: [id number] DISCH DAY >30min SAWYER NEWSOME MD Aug 28, 2025 09:40
== END 2025-08-22 16:38 | disposition left against medical advice (07) | DRG 103 ==
LOC: ER 02:14 → OVERFLOW 08:16 → CENTRAL 22:26
PROVIDERS: ADMIT Student in an Organized Health Care Education/Training Program; ATTEND Student in an Organized Health Care Education/Training Program
DX: G43.901 Migraine, unspecified, not intractable, with status migrainosus (principal); I69.354 Hemiplegia and hemiparesis following cerebral infarction affecting left non-dominant side; R56.9 Unspecified convulsions; I10 Essential (primary) hypertension; E78.5 Hyperlipidemia, unspecified; M62.838 Other muscle spasm; Z53.29 Procedure and treatment not carried out because of patient's decision for other reasons; Z87.442 Personal history of urinary calculi
CPT/HCPCS: 36415; 70496; 70498; 70551; 71045; 80053; 81001; 82962; 83735; 83880; 84484; 85025; 85610; 85730; 87086; 93005; 96374; 96375; G0378; J1885